=== PATIENT | male | born 1965 | race African-American/Black ===

== ENCOUNTER 2021-02-03 11:37 | Emergency (ER) | payer MEDICARE, MEDICAID ==
[~2021-02-03] VITALS: Ht 170.2 cm; Wt 79.0 kg
[~2021-02-03 11:37] MED LIST: ABIL5 PO; TYLENOL#3
[2021-02-03] MEDS ORDERED: IBUPROFEN 600MG TABLET PO NR (12:05)
[2021-02-03] MEDS ORDERED: NAPR-681 PO (13:12)
[2021-02-03 13:22] VITALS: BP 135/89
== END 2021-02-03 13:24 | disposition home or self-care (01) ==
LOC: ER 11:37
DX: S86.011A Strain of right Achilles tendon, initial encounter (principal); I10 Essential (primary) hypertension; G43.909 Migraine, unspecified, not intractable, without status migrainosus; Y93.02 Activity, running; Y92.488 Other paved roadways as the place of occurrence of the external cause; Z88.0 Allergy status to penicillin
CPT/HCPCS: 73610; 99283

== ENCOUNTER 2021-09-16 07:52 | Emergency (ER) | payer MEDICARE, MEDICAID ==
[~2021-09-16] VITALS: Ht 170.2 cm; Wt 87.0 kg
[~2021-09-16 07:52] MED LIST changes: +NAPR-681 PO
[2021-09-16 08:15] VITALS: BP 144/125
[2021-09-16] MEDS ORDERED: ACETAMINOPHEN 325MG TABLET PO ONE (08:45)
[2021-09-16] MEDS ORDERED: NAP5EC MT (09:37)
[2021-09-16] MEDS ORDERED: TETANUS, DIPHTHERIA, PERTUSSIS VAC/PF 0.5ML (>10YR OLD) IM ONE (09:45)
== END 2021-09-16 09:48 | disposition home or self-care (01) ==
LOC: ER 08:07
DX: S61.411A Laceration without foreign body of right hand, initial encounter (principal); Z88.0 Allergy status to penicillin; W45.8XXA Other foreign body or object entering through skin, initial encounter; Y93.89 Activity, other specified; Y92.89 Other specified places as the place of occurrence of the external cause; Y99.8 Other external cause status
CPT/HCPCS: 99282

== ENCOUNTER 2021-10-27 10:52 | Inpatient (IN) | payer MEDICARE, MEDICAID ==
[~2021-10-27] VITALS: Ht 170.2 cm; Wt 79.4 kg
[~2021-10-27 10:52] MED LIST changes: +NAP5EC MT
[2021-10-27] MEDS ORDERED: LORAZEPAM 2MG/ML CPJ IV ONE (11:30)
[2021-10-27] MEDS ORDERED: METOCLOPRAMIDE HCL 10MG/2ML VIAL IV ONE (11:30)
[2021-10-27] MEDS ORDERED: HYDROCODONE/APAP 7.5/325MG 1 TAB TABLET PO ONE (11:30)
[2021-10-27 12:20] LABS: BASOPHILS % 0.4 % (0.0-2.0); EOSINOPHILS % 1.4 % (0.0-5.0); HEMATOCRIT. 42.1 % (42.0-52.0); HEMOGLOBIN. 14.3 g/dL (14.0-18.0); LYMPHOCYTES % 15.1 % (20.0-50.0); MEAN CORPUSCULAR HEMOGLOBIN 29.6 pg (28.0-32.0); MEAN CORPUSCULAR VOLUME 87.3 fL (80.0-94.0); MEAN PLATELET VOLUME 6.5 fl (7.4-10.4); MONOCYTES % 5.1 % (2.0-8.0); PLATELET 383 x1000/uL (130-400); RED BLOOD CELL COUNT 4.82 mill/uL (4.7-6.1)
[2021-10-27 12:27] LABS: CHLORIDE 108 mEq/L (98-107)
[2021-10-27 14:41] LABS: PARTIAL THROMBOPLASTIN TIME 24.9 sec (23.4-31.0); PROTHROMBIN TIME 10.3 sec (9.6-11.0)
[2021-10-27] MEDS ORDERED: IOHEXOL-350 100 ML BOTTLE ONE (15:14)
[2021-10-27] MEDS ORDERED: MORPHINE SULFATE 4 MG/ML CPJ (NOT FOR IM USE) IV ONE ×2 (15:30→18:45)
[2021-10-27] MEDS ORDERED: HEPARIN 25,000 UNITS PREMIX 250 ML IV ONE (16:45)
[2021-10-27] MEDS ORDERED: HEPARIN 5000 UNITS/ML VIAL IV ONE (16:45)
[2021-10-27] MEDS ORDERED: HEPARIN BOLUS PRN aPTT 37-44 IV ×2 (17:15→23:00)
[2021-10-27] MEDS ORDERED: HEPARIN 25,000 UNITS PREMIX 250 ML IV SCH (17:15)
[2021-10-27] MEDS ORDERED: HEPARIN 80 UNITS/KG BOLUS IV NR (17:15)
[2021-10-27] MEDS ORDERED: HEPARIN BOLUS PRN aPTT <36 IV ×2 (17:15→23:00)
[2021-10-28] VITALS (8 sets, daily range): BP systolic 119–154; BP diastolic 64–94
[2021-10-28] MEDS ORDERED: IPRATROPIUM/ALBUTEROL 0.5-3(2.5)MG/3ML NEB HHN PRN (09:30)
[2021-10-28] MEDS ORDERED: ACETAMINOPHEN 325MG TABLET PO PRN (09:30)
[2021-10-28] MEDS ORDERED: MORPHINE SULFATE 2 MG/ML CPJ (NOT FOR IM USE) IV PRN (09:30)
[2021-10-28] MEDS ORDERED: DIPHENHYDRAMINE 50MG/ML VIAL IV PRN (09:30)
[2021-10-28] MEDS ORDERED: CLONIDINE 0.1MG TABLET PO PRN (09:30)
[2021-10-28] MEDS ORDERED: ONDANSETRON HCL 4MG/2ML INJ IV PRN (09:30)
[2021-10-28] MEDS ORDERED: NALOXONE HCL 0.4MG/ML VIAL IV PRN (10:00)
[2021-10-28] MEDS ORDERED: ENOXAPARIN 80MG/0.8ML SYR SUBCUT SCH (11:00)
[2021-10-28] MEDS ORDERED: TRAM50TA3 PO (13:58)
[2021-10-28] MEDS ORDERED: DICL100G31 TP (13:58)
[2021-10-28] MEDS ORDERED: CYCL10TA21 PO (13:58)
[2021-10-28] MEDS ORDERED: SERT-112 PO (13:58)
[2021-10-28] MEDS ORDERED: ARIP10TA56 PO (13:58)
[2021-10-28] MEDS ORDERED: PREG50CA63 PO (13:58)
[2021-10-28] MEDS ORDERED: ALBU18HF2 IH (13:58)
[2021-10-28] MEDS ORDERED: FLUT12AE IH (13:58)
[2021-10-28] MEDS ORDERED: IBUP-2029 MT (13:59)
[2021-10-28] MEDS ORDERED: TRAMADOL 50MG TABLET PO PRN (14:30)
[2021-10-28] MEDS: SERTRALINE HCL 100MG TABLET PO SCH (16:45)
[2021-10-28] MEDS: PREGABALIN 50 MG CAPSULE PO SCH (16:45)
[2021-10-28] MEDS: CYCLOBENZAPRINE 10MG TABLET PO SCH (20:42)
[2021-10-28] MEDS: ARIPIPRAZOLE 5MG TABLET PO SCH (20:42)
[2021-10-29] VITALS (15 sets, daily range): BP systolic 126–161; BP diastolic 64–115
[2021-10-29 05:35] LABS: BASOPHILS % 0.5 % (0.0-2.0); EOSINOPHILS % 1.9 % (0.0-5.0); HEMATOCRIT. 43.8 % (42.0-52.0); HEMOGLOBIN. 14.8 g/dL (14.0-18.0); LYMPHOCYTES % 21.4 % (20.0-50.0); MEAN CORPUSCULAR HEMOGLOBIN 29.3 pg (28.0-32.0); MEAN CORPUSCULAR VOLUME 86.9 fL (80.0-94.0); MEAN PLATELET VOLUME 6.7 fl (7.4-10.4); MONOCYTES % 8.7 % (2.0-8.0); NEUTROPHILS % 67.5 % (40.0-76.0); PLATELET 386 x1000/uL (130-400); RED BLOOD CELL COUNT 5.04 mill/uL (4.7-6.1); RED CELL DISTRIBUTION WIDTH 13.9 % (11.6-14.6)
[2021-10-29 05:50] LABS: CHLORIDE 103 mEq/L (98-107)
[2021-10-29] MEDS: SERTRALINE HCL 100MG TABLET PO SCH (08:50)
[2021-10-29] MEDS: PREGABALIN 50 MG CAPSULE PO SCH ×2 (08:50→17:00)
[2021-10-29] MEDS: ENOXAPARIN 40MG/0.4ML SYR SUBCUT SCH (08:51)
[2021-10-29 17:38] LABS: *AMPHETAMINES SCREEN URINE NEGATIVE (NEGATIVE); *BARBITURATES SCREEN URINE NEGATIVE (NEGATIVE); *BENZODIAZEPINES SCREEN URINE NEGATIVE (NEGATIVE); *COCAINE SCREEN URINE PRESUMTIVE POSITIVE (NEGATIVE); CANNABINOID URINE SCREEN PRESUMTIVE POSITIVE (NEGATIVE); METHADONE URINE SCREEN NEGATIVE (NEGATIVE); OPIATES URINE SCREEN NEGATIVE (NEGATIVE); PHENCYCLIDINE URINE SCREEN NEGATIVE (NEGATIVE)
[2021-10-29] MEDS: CYCLOBENZAPRINE 10MG TABLET PO SCH (21:00)
[2021-10-29] MEDS: ARIPIPRAZOLE 5MG TABLET PO SCH (22:05)
[2021-10-30] VITALS (7 sets, daily range): BP systolic 137–162; BP diastolic 72–94
[2021-10-30 06:30] LABS: BASOPHILS % 0.5 % (0.0-2.0); EOSINOPHILS % 1.1 % (0.0-5.0); HEMATOCRIT. 46.3 % (42.0-52.0); HEMOGLOBIN. 15.8 g/dL (14.0-18.0); LYMPHOCYTES % 21.9 % (20.0-50.0); MEAN CORPUSCULAR HEMOGLOBIN 29.6 pg (28.0-32.0); MEAN CORPUSCULAR VOLUME 86.6 fL (80.0-94.0); MEAN PLATELET VOLUME 6.9 fl (7.4-10.4); MONOCYTES % 8.8 % (2.0-8.0); NEUTROPHILS % 67.7 % (40.0-76.0); PLATELET 432 x1000/uL (130-400); RED BLOOD CELL COUNT 5.35 mill/uL (4.7-6.1); RED CELL DISTRIBUTION WIDTH 13.6 % (11.6-14.6)
[2021-10-30 07:08] LABS: VITAMIN B12 SERUM 680 pg/mL (211-911)
[2021-10-30 07:10] LABS: HEPATITIS B SURFACE ANTIGEN NEGATIVE
[2021-10-30 08:35] LABS: CHLORIDE 102 mEq/L (98-107)
[2021-10-30 08:53] LABS: HDL CHOLESTEROL 51 mg/dL (40-59); LDL CHOLESTEROL 154 mg/dL (5-100); T4 FREE 1.22 ng/dL (0.76-1.46)
[2021-10-30] MEDS: SERTRALINE HCL 100MG TABLET PO SCH (08:58)
[2021-10-30] MEDS: ENOXAPARIN 40MG/0.4ML SYR SUBCUT SCH (08:58)
[2021-10-30] MEDS: PREGABALIN 50 MG CAPSULE PO SCH (08:58)
== END 2021-10-30 14:15 | disposition home or self-care (01) | DRG 552 ==
LOC: ER 10:52 → 5EST 10-28 06:54 → ENRESERV 10-28 11:29
PROVIDERS: ADMIT Internal Medicine; ATTEND Internal Medicine
DX: M48.061 Spinal stenosis, lumbar region without neurogenic claudication (principal); M47.816 Spondylosis without myelopathy or radiculopathy, lumbar region; I70.203 Unspecified atherosclerosis of native arteries of extremities, bilateral legs; Q27.32 Arteriovenous malformation of vessel of lower limb; K57.90 Diverticulosis of intestine, part unspecified, without perforation or abscess without bleeding; I10 Essential (primary) hypertension; F17.200 Nicotine dependence, unspecified, uncomplicated; J44.9 Chronic obstructive pulmonary disease, unspecified; G43.909 Migraine, unspecified, not intractable, without status migrainosus; Z20.822 Contact with and (suspected) exposure to COVID-19; M51.36 Other intervertebral disc degeneration, lumbar region; Z82.49 Family history of ischemic heart disease and other diseases of the circulatory system; Z88.0 Allergy status to penicillin
CPT/HCPCS: 36415; 72131; 72148; 75635; 76604; 80048; 80053; 80061; 80305; 82607; 84439; 84443; 85025; 86705; 86709; 86803; 87340; 87426; 93005; 93306; 93880; 93922; 99291; C9803; J1644; J1650; J2060; J2270; J2765; Q9967

== ENCOUNTER 2023-05-05 07:20 | Emergency (ER) | payer MEDICARE, MEDICAID ==
[~2023-05-05] VITALS: Ht 170.2 cm; Wt 78.2 kg
[~2023-05-05 07:20] MED LIST changes: -ABIL5 PO; +CLOP-31 PO; +METR375C2 PO; -NAP5EC MT; +SULF1TAB48 MT; -TYLENOL#3; +VANC250C5 MT
[2023-05-05 07:26] VITALS: BP 123/77; PULSE 82; RESP 16; TEMP 98.2; O2SAT 99
== END 2023-05-05 07:47 | disposition home or self-care (01) ==
LOC: ER 07:20
DX: S91.311D Laceration without foreign body, right foot, subsequent encounter (principal); Z48.02 Encounter for removal of sutures; E11.9 Type 2 diabetes mellitus without complications; I10 Essential (primary) hypertension; G43.909 Migraine, unspecified, not intractable, without status migrainosus; X58.XXXD Exposure to other specified factors, subsequent encounter
CPT/HCPCS: 99281

== ENCOUNTER 2023-12-28 16:06 | Emergency (ER) | payer MEDICARE, MEDICAID ==
[~2023-12-28] VITALS: Ht 170.2 cm; Wt 83.9 kg
[2023-12-28 16:21] VITALS: O2SAT 100
[2023-12-28] MEDS ORDERED: CEPH500T MT (17:41)
[2023-12-28 18:40] VITALS: BP 105/66; PULSE 81; RESP 17; TEMP 36.94740; O2SAT 100
== END 2023-12-28 22:57 | disposition home or self-care (01) ==
LOC: ER 16:06
DX: L08.9 Local infection of the skin and subcutaneous tissue, unspecified (principal); E11.9 Type 2 diabetes mellitus without complications; I10 Essential (primary) hypertension; Z88.0 Allergy status to penicillin; Z98.890 Other specified postprocedural states
CPT/HCPCS: 99283

== ENCOUNTER 2024-04-18 08:48 | Emergency (ER) | payer MEDICARE, MEDICAID ==
[~2024-04-18] VITALS: Ht 170.2 cm; Wt 86.1 kg
[~2024-04-18 08:48] MED LIST changes: +CEPH500T MT; +VANC250C19 MT; -VANC250C5 MT
[2024-04-18 08:51] VITALS: BP 125/90; PULSE 79; RESP 16; TEMP 97.9; O2SAT 100; O2SAT 98
[2024-04-18] MEDS ORDERED: CEPH500C2 MT (09:22)
== END 2024-04-18 09:43 | disposition home or self-care (01) ==
LOC: ER 08:48
DX: L08.9 Local infection of the skin and subcutaneous tissue, unspecified (principal); E78.00 Pure hypercholesterolemia, unspecified; I10 Essential (primary) hypertension; E11.9 Type 2 diabetes mellitus without complications; Z88.0 Allergy status to penicillin
CPT/HCPCS: 99283